=== PATIENT | female | born 1930 | race Caucasian/White ===

== ENCOUNTER 2016-11-07 17:22 | Inpatient (IN) | payer MEDICARE, OTHER ==
[2016-11-07 18:33] LABS: Basophils % (A) 0 %; CH 33.6; CHCM 35.2; Eosinophils # (A) 0.1 k/uL (0-0.7); Eosinophils % (A) 1 %; HCT 38.7 % (34.0-46.0); HDW 2.53; HGB 12.9 gm/dL (11.4-16.0); Luc % (Auto) 1; Lymphocytes # (A) 1.1 k/uL (1.0-4.8); Lymphocytes % (A) 14 %; MCH 31.9 pg (25.0-35.0); MCHC 33.3 g/dL (31.0-37.0); MCV 95.9 fL (80.0-100.0); Mean Platelet Volume 7.7; Monocytes # (A) 0.6 k/uL (0-1.0); Monocytes % (A) 7 %; Neutrophils % (A) 76 %; RBC 4.04 m/uL (3.80-5.40); RDW 13.8 % (11.5-15.5); WBC 7.9 k/uL (3.8-10.6); WBC (Perox) 7.97
[2016-11-07 18:43] LABS: Calcium 8.7 mg/dL (8.4-10.2); Potassium 5.6 mmol/L (3.5-5.1); Total Bilirubin 0.5 mg/dL (0.2-1.3)
[2016-11-07 19:05] LABS: Ammonia <9 umol/L (<30)
[2016-11-07 19:12] LABS: Appearance,Urine Cloudy (Clear); Bacteria,Urine Rare /hpf; Bilirubin,Urine Negative (Negative); Glucose,Urine (UA) Negative (Negative); Ketones,Urine Negative (Negative); Leukocyte Esterase,Urine Negative (Negative); Mucus,Urine Rare /hpf; Nitrite,Urine Negative (Negative); Particle Count 8558; Protein,Urine Trace (Negative); RBC,Urine 1 /hpf (0-5); Specific Gravity,Urine 1.013 (1.001-1.035); Squamous Epithelial Cell,Urine 5 /hpf (0-4); UA Billing (MACRO vs. MICRO) MICRO; Urobilinogen,Urine <2.0 mg/dL (<2.0); WBC,Urine 2 /hpf (0-5)
[2016-11-07] MEDS ORDERED: ENOXAPARIN 80 MG/0.8 ML SYRINGE SQ STA (20:20)
[2016-11-07] MEDS ORDERED: predniSONE 20 MG TAB PO STA (22:10)
--- NOTE | 2016-11-07 22:10 | ED ---
SOB HPI - General Chief Complaint: Shortness of Breath Stated Complaint: diarrhea, weakness, sob, confusion Time Seen by Provider: 11/07/16 17:46 Source: patient, RN notes reviewed Mode of arrival: ambulatory Limitations: altered mental status (Underlying dementia) - History of Present Illness Initial Comments: This patient is an 86-year-old woman with a history of underlying COPD, who presents to be evaluated for worsening shortness of breath. The patient's daughter is also providing history, as she states the patient has some underlying dementia. The patient has been becoming more short of breath with any exertion. She is also coughing. Patient denies fever or sputum production. She is not having any chest pain. MD Complaint: shortness of breath Onset/Timin -: days(s) Consistency: constant Improves With: nothing Worsens With: exertion Known History Of: COPD - Related Data Home Medications Medication Instructions Recorded Confirmed Vit A,C & E/Lutein/Minerals 1 tab PO DAILY 04/25/15 11/07/16 [Ocuvite with Lutein Tablet] Albuterol Inhaler [Ventolin Hfa 1 puff INHALATION RT-BID PRN 11/07/16 11/07/16 Inhaler] Aspirin EC [Ecotrin Low Dose] 81 mg PO DAILY 11/07/16 11/07/16 Cholecalciferol [Vitamin D3] 1,000 unit PO DAILY 11/07/16 11/07/16 Multivitamins, Thera [Multivitamin] 1 tab PO DAILY 11/07/16 11/07/16 [employer] Fatty Acids/Fish Oil [Fish 1 cap PO DAILY 11/07/16 11/07/16 Oil 1,000 mg Softgel] Allergies Allergy/AdvReac Type Severity Reaction Status Date / Time No Known Allergies Allergy Verified 11/07/16 18:28 Review of Systems ROS Statement: Those systems with pertinent positive or pertinent negative responses have been documented in the HPI. ROS Other: All systems not noted in ROS Statement are negative. Limitations: ROS unobtainable due to patients medical condition Constitutional: Reports: weakness. Denies: fever, chills Respiratory: Reports: cough, dyspnea Cardiovascular: Reports: dyspnea on exertion. Denies: chest pain, palpitations , edema Gastrointestinal: Reports: diarrhea. Denies: abdominal pain, vomiting, melena, hematochezia Genitourinary: Denies: dysuria Musculoskeletal: Denies: back pain Skin: Denies: rash Neurological: Denies: headache, weakness, numbness Past Medical History Past Medical History: Cancer Additional Past Medical History / Comment(s): breast cancer, peptic ulcer History of Any Multi-Drug Resistant Organisms: None Reported Past Surgical History: Orthopedic Surgery Additional Past Surgical History / Comment(s): left breast mastectomy, right knee surgery Past Psychological History: No Psychological Hx Reported Smoking Status: Current every day smoker Past Alcohol Use History: None Reported Past Drug Use History: None Reported General Exam Limitations: no limitations General appearance: alert, in distress Head exam: Present: atraumatic, normocephalic Eye exam: Present: normal appearance Neck exam: Present: normal inspection Respiratory exam: Present: wheezes, rales (Bilateral bases). Absent: rhonchi, stridor, accessory muscle use, decreased breath sounds, prolonged expiratory Cardiovascular Exam: Present: bradycardia, normal heart sounds. Absent: systolic murmur, diastolic murmur, rubs, gallop GI/Abdominal exam: Present: soft. Absent: distended, tenderness, guarding, rebound, mass Extremities exam: Present: normal inspection, normal capillary refill. Absent: pedal edema, calf tenderness Back exam: Present: normal inspection. Absent: CVA tenderness (R), CVA tenderness (L) Neurological exam: Present: alert Skin exam: Present: warm, dry, intact, normal color. Absent: rash Course Vital Signs 11/07/16 11/07/16 11/07/16 17:39 18:04 19:22 Temperature 98.2 F Pulse Rate 41 L 38 L Respiratory 18 18 18 Rate Blood Pressure 140/63 161/70 O2 Sat by Pulse 96 96 Oximetry 11/07/16 11/07/16 11/07/16 20:52 22:45 23:23 Temperature Pulse Rate 36 L 39 L 38 L Respiratory 14 18 18 Rate Blood Pressure 196/81 175/76 142/89 O2 Sat by Pulse 95 92 L Oximetry 11/07/16 23:44 Temperature Pulse Rate 46 L Respiratory 18 Rate Blood Pressure 171/70 O2 Sat by Pulse 95 Oximetry Medical Decision Making - Medical Decision Making Patient is an 86-year-old woman brought for dyspnea. She is found to have hyponatremia, there is some element of congestive heart failure, as well as some underlying COPD. In addition the patient is found to have what appears to be complete heart block with a junctional rhythm, the rate is in the upper 30s to 40. She is maintaining her blood pressure. External pacer pads applied, but the patient is not requiring pacing at the moment. Patient be admitted, case discussed with the hospitalist group, covering for her physician. In addition case was discussed with Dr. Layne who is covering cardiology tonight. He requests that dopamine be hung to maintain her blood pressure. Case also discussed with Dr. Samaniego who is the corporate strategist [facility]. - Lab Data Result diagrams: 11/07/16 18:10 11/07/16 18:10 Lab Results 11/07/16 11/07/16 11/07/16 Range/Units 18:10 18:10 18:10 WBC 7.9 (3.8-10.6) k/uL RBC 4.04 (3.80-5.40) m/uL Hgb 12.9 (11.4-16.0) gm/dL Hct 38.7 (34.0-46.0) % MCV 95.9 (80.0-100.0) fL MCH 31.9 (25.0-35.0) pg MCHC 33.3 (31.0-37.0) g/dL RDW 13.8 (11.5-15.5) % Plt Count 261 (150-450) k/uL Neutrophils % 76 % Lymphocytes % 14 % Monocytes % 7 % Eosinophils % 1 % Basophils % 0 % Neutrophils # 6.0 (1.3-7.7) k/uL Lymphocytes # 1.1 (1.0-4.8) k/uL Monocytes # 0.6 (0-1.0) k/uL Eosinophils # 0.1 (0-0.7) k/uL Basophils # 0.0 (0-0.2) k/uL D-Dimer (<0.60) mg/L FEU Sodium 122 L (137-145) mmol/L Potassium 5.6 H (3.5-5.1) mmol/L Chloride 93 L (98-107) mmol/L Carbon Dioxide 22 (22-30) mmol/L Anion Gap 7 mmol/L BUN 30 H (7-17) mg/dL Creatinine 1.27 H (0.52-1.04) mg/dL Est GFR (MDRD) Af Amer 48 (>60 ml/min/1.73 sqM) Est GFR (MDRD) Non-Af 40 (>60 ml/min/1.73 sqM) Glucose 113 H (74-99) mg/dL Plasma Lactic Acid Jung (0.7-2.0) mmol/L Calcium 8.7 (8.4-10.2) mg/dL Total Bilirubin 0.5 (0.2-1.3) mg/dL AST 21 (14-36) U/L ALT 34 (9-52) U/L Alkaline Phosphatase 70 (38-126) U/L Ammonia (<30) umol/L Troponin I 0.023 (0.000-0.034) ng/mL NT-Pro-B Natriuret Pep pg/mL Total Protein 6.0 L (6.3-8.2) g/dL Albumin 3.2 L (3.5-5.0) g/dL Urine Color Urine Appearance (Clear) Urine pH (5.0-8.0) Ur Specific [place] (1.001-1.035) Urine Protein (Negative) Urine Glucose (UA) (Negative) Urine Ketones (Negative) Urine Blood (Negative) Urine Nitrate (Negative) Urine Bilirubin (Negative) Urine Urobilinogen (<2.0) mg/dL Ur Leukocyte Esterase (Negative) Urine RBC (0-5) /hpf Urine WBC (0-5) /hpf Ur Squamous Epith Cells (0-4) /hpf Urine Bacteria (None) /hpf Hyaline Casts (0-2) /lpf Urine Mucus (None) /hpf 11/07/16 11/07/16 11/07/16 Range/Units 18:10 18:10 18:25 WBC (3.8-10.6) k/uL RBC (3.80-5.40) m/uL Hgb (11.4-16.0) gm/dL Hct (34.0-46.0) % MCV (80.0-100.0) fL MCH (25.0-35.0) pg MCHC (31.0-37.0) g/dL RDW (11.5-15.5) % Plt Count (150-450) k/uL Neutrophils % % Lymphocytes % % Monocytes % % Eosinophils % % Basophils % % Neutrophils # (1.3-7.7) k/uL Lymphocytes # (1.0-4.8) k/uL Monocytes # (0-1.0) k/uL Eosinophils # (0-0.7) k/uL Basophils # (0-0.2) k/uL D-Dimer 1.31 H (<0.60) mg/L FEU Sodium (137-145) mmol/L Potassium (3.5-5.1) mmol/L Chloride (98-107) mmol/L Carbon Dioxide (22-30) mmol/L Anion Gap mmol/L BUN (7-17) mg/dL Creatinine (0.52-1.04) mg/dL Est GFR (MDRD) Af Amer (>60 ml/min/1.73 sqM) Est GFR (MDRD) Non-Af (>60 ml/min/1.73 sqM) Glucose (74-99) mg/dL Plasma Lactic Acid Jung 1.3 (0.7-2.0) mmol/L Calcium (8.4-10.2) mg/dL Total Bilirubin (0.2-1.3) mg/dL AST (14-36) U/L ALT (9-52) U/L Alkaline Phosphatase (38-126) U/L Ammonia <9 (<30) umol/L Troponin I (0.000-0.034) ng/mL NT-Pro-B Natriuret Pep 59157 pg/mL Total Protein (6.3-8.2) g/dL Albumin (3.5-5.0) g/dL Urine Color Urine Appearance (Clear) Urine pH (5.0-8.0) Ur Specific [place] (1.001-1.035) Urine Protein (Negative) Urine Glucose (UA) (Negative) Urine Ketones (Negative) Urine Blood (Negative) Urine Nitrate (Negative) Urine Bilirubin (Negative) Urine Urobilinogen (<2.0) mg/dL Ur Leukocyte Esterase (Negative) Urine RBC (0-5) /hpf Urine WBC (0-5) /hpf Ur Squamous Epith Cells (0-4) /hpf Urine Bacteria (None) /hpf Hyaline Casts (0-2) /lpf Urine Mucus (None) /hpf 11/07/16 Range/Units 18:57 WBC (3.8-10.6) k/uL RBC (3.80-5.40) m/uL Hgb (11.4-16.0) gm/dL Hct (34.0-46.0) % MCV (80.0-100.0) fL MCH (25.0-35.0) pg MCHC (31.0-37.0) g/dL RDW (11.5-15.5) % Plt Count (150-450) k/uL Neutrophils % % Lymphocytes % % Monocytes % % Eosinophils % % Basophils % % Neutrophils # (1.3-7.7) k/uL Lymphocytes # (1.0-4.8) k/uL Monocytes # (0-1.0) k/uL Eosinophils # (0-0.7) k/uL Basophils # (0-0.2) k/uL D-Dimer (<0.60) mg/L FEU Sodium (137-145) mmol/L Potassium (3.5-5.1) mmol/L Chloride (98-107) mmol/L Carbon Dioxide (22-30) mmol/L Anion Gap mmol/L BUN (7-17) mg/dL Creatinine (0.52-1.04) mg/dL Est GFR (MDRD) Af Amer (>60 ml/min/1.73 sqM) Est GFR (MDRD) Non-Af (>60 ml/min/1.73 sqM) Glucose (74-99) mg/dL Plasma Lactic Acid Jung (0.7-2.0) mmol/L Calcium (8.4-10.2) mg/dL Total Bilirubin (0.2-1.3) mg/dL AST (14-36) U/L ALT (9-52) U/L Alkaline Phosphatase (38-126) U/L Ammonia (<30) umol/L Troponin I (0.000-0.034) ng/mL NT-Pro-B Natriuret Pep pg/mL Total Protein (6.3-8.2) g/dL Albumin (3.5-5.0) g/dL Urine Color Yellow Urine Appearance Cloudy H (Clear) Urine pH 5.0 (5.0-8.0) Ur Specific [place] 1.013 (1.001-1.035) Urine Protein Trace H (Negative) Urine Glucose (UA) Negative (Negative) Urine Ketones Negative (Negative) Urine Blood Trace H (Negative) Urine Nitrate Negative (Negative) Urine Bilirubin Negative (Negative) Urine Urobilinogen <2.0 (<2.0) mg/dL Ur Leukocyte Esterase Negative (Negative) Urine RBC 1 (0-5) /hpf Urine WBC 2 (0-5) /hpf Ur Squamous Epith Cells 5 H (0-4) /hpf Urine Bacteria Rare H (None) /hpf Hyaline Casts 11 H (0-2) /lpf Urine Mucus Rare H (None) /hpf - EKG Data -: EKG Interpreted by Me EKG shows normal: axis (Left axis deviation), intervals (Prolonged QT.), ST-T waves (Normal) Rate: bradycardia Interpretation: other (There appears to be a third-degree heart block, with a junctional rhythm rate approximately 40 bpm. Partial right bundle branch block. Prolonged QT syndrome.) Critical Care Time Critical Care Time: Yes (45 minutes) Disposition Clinical Impression: Congestive heart failure, Hyponatremia, Elevated d-dimer, Third degree heart block Disposition: ADMITTED IP TO THIS [facility] Condition: Poor
[2016-11-07] MEDS ORDERED: ALBUTEROL NEBULIZED 2.5 MG/3 ML INHALATION PRN (22:11)
--- NOTE | 2016-11-07 22:22 | XR ---
EXAMINATION TYPE: XR chest 1V portable DATE OF EXAM: 11/07/2016 6:33 PM COMPARISON: 09/19/2015 HISTORY: Altered mental status and difficulty breathing TECHNIQUE: Single frontal view of the chest is obtained. FINDINGS: There is no focal air space opacity, pleural effusion, or pneumothorax seen. There is pulm onary hyperinflation from chronic obstructive pulmonary disease. Additionally there is blunting of th e costophrenic angles relating copious overlying soft tissues as there is no evidence of pleural effu estiven on the lateral image. Mild pulmonary vascular congestion and minimal cardiac enlargement are see n with postoperative changes of the left axilla and chest wall. Glenohumeral arthropathy is noted. Th e cardiac silhouette size is within normal limits. The osseous structures are intact. IMPRESSION: 1. Mild pulmonary vascular congestion. 2. No focal consolidation, pleural effusion, or pneumothorax.
[2016-11-07] MEDS ORDERED: DOPamine DRIP 800 MG in DEXTROSE/WATER 1 500ML.BAG IV ONE (22:51)
[2016-11-07] MEDS: SODIUM CHLORIDE 0.9% 1,000 ML IV SCH (23:05)
[2016-11-08] MEDS ORDERED: FUROSEMIDE 10 MG/ML 4 ML VIAL IV STA (01:16)
[2016-11-08 01:45] LABS: Glucose,Whole Blood 112 mg/dL (75-99)
[2016-11-08] MEDS ORDERED: NALOXONE 0.4 MG/ML 1 ML VIAL IV PRN (02:59)
[2016-11-08] MEDS ORDERED: DOPamine DRIP 250 ML IV SCH (03:15)
[2016-11-08] MEDS ORDERED: amLODIPine 10 MG TAB PO STA (03:42)
[2016-11-08 04:49] LABS: Basophils % (A) 0 %; CH 32.9; CHCM 33.6; Eosinophils % (A) 0 %; HCT 40.8 % (34.0-46.0); HDW 2.49; HGB 13.2 gm/dL (11.4-16.0); Luc # (Auto) 0.04; Luc % (Auto) 1; Lymphocytes # (A) 0.4 k/uL (1.0-4.8); Lymphocytes % (A) 5 %; MCH 31.8 pg (25.0-35.0); MCHC 32.3 g/dL (31.0-37.0); MCV 98.3 fL (80.0-100.0); Mean Platelet Volume 6.8; Monocytes # (A) 0.2 k/uL (0-1.0); Monocytes % (A) 2 %; Neutrophils # (A) 8.1 k/uL (1.3-7.7); Neutrophils % (A) 92 %; RBC 4.15 m/uL (3.80-5.40); RDW 13.8 % (11.5-15.5); WBC 8.8 k/uL (3.8-10.6); WBC (Perox) 9.67
[2016-11-08 05:02] LABS: Calcium 8.6 mg/dL (8.4-10.2); Magnesium 2.3 mg/dL (1.6-2.3); Phosphorous 3.8 mg/dL (2.5-4.5)
[2016-11-08 05:03] LABS: Potassium 6.1 mmol/L (3.5-5.1)
[2016-11-08] MEDS ORDERED: DOPamine DRIP 800 MG in DEXTROSE/WATER 1 500ML.BAG IV ONE (05:15)
[2016-11-08] MEDS ORDERED: DEXTROSE 50%-WATER 50 ML SYRINGE IVP ONE (05:46)
[2016-11-08] MEDS ORDERED: CALCIUM GLUCONATE 1,000 MG in SODIUM CHLORIDE 0.9% 100 ML IVPB ONE (05:46)
[2016-11-08] MEDS ORDERED: INSULIN REGULAR 100 UNIT/ML VIAL IV ONE (05:46)
[2016-11-08] MEDS ORDERED: SODIUM POLYSTYRENE SULFONATE 15 GM/60 ML BOTTLE PO ONE (05:46)
[2016-11-08] MEDS ORDERED: ATROPINE SULFATE 0.1 MG/ML 10ML SYRINGE ONE (05:57)
[2016-11-08 06:23] LABS: Glucose,Whole Blood 150 mg/dL (75-99)
[2016-11-08 07:02] LABS: Glucose,Whole Blood 271 mg/dL (75-99)
[2016-11-08 07:17] LABS: Glucose,Whole Blood 200 mg/dL (75-99)
--- NOTE | 2016-11-08 07:35 | CONS ---
DATE OF CONSULTATION: CHIEF COMPLAINT: Exertional shortness of breath. Zoya is an 86-year-old lady with history of COPD who came to hospital complaining of exertional fatigue, this started last Monday when she became fatigued and tired as she walked from her home to her mailbox. This continued to get worse. She did not have any syncope. Did not have chest pain. Did not have focal neurological deficits. She came to the ER and was found to be in complete heart block with AV dissociation with junctional escape rhythm with narrow complexes. She had a fairly uneventful course through last night. Has somewhat of a labile blood pressure, but does not have any symptoms at rest. There is no syncope and does not have any pauses. We did not have to use any atropine and dopamine that was started at 2.5 had been stopped. She had hyperkalemia on admission with a potassium of 5.6 that increased to 6.1 this morning. The bradyarrhythmia is either due to an underlying problem with her conduction system or could be due to hyperkalemia that she has. I initiated treatment for hyperkalemia with the standard protocol including calcium gluconate, insulin, dextrose and Kayexalate. Heart rate has improved from high 30s to mid 40s at the moment, but still has AV dissociation. I talked to patient about her treatment options including a temporary transvenous pacemaker at the moment and permanent pacemaker. She wants to think over, talk it out with her family before she makes a decision. It is also possible that once the hyperkalemia is treatment, she resumes sinus rhythm and may not require any pacemaker. We prefer to avoid temporary pacemaker in this patient who is very stable, does not have any syncope, has a stable and narrow complex escape rhythm. Past medical history is significant for COPD. Medications at home include aspirin and Atrovent. ALLERGIES: There are no known drug allergies. Family history is negative for premature coronary artery disease. Social history is significant for 50 pack-year smoking. There is no history of EtOH abuse or drug abuse. REVIEW OF SYSTEMS: HEENT: Unremarkable. CARDIAC: As described above. RESPIRATORY: As described above. GI: Negative. GENITOURINARY: Negative. ALLERGY/IMMUNOLOGY: Negative. MUSCULOSKELETAL: Significant for arthritis. PSYCHOSOCIAL: Negative. ENDOCRINE: Negative. HEMATOLOGIC: Negative. DERM: Negative. CONSTITUTIONAL: Negative. ONCOLOGICAL: Negative. The rest of the system review is not relevant. On exam, heart rate is 45 beats per minute, blood pressure varied between 145/50 to 170/90. O2 sat is 95%. There is no jugular venous distention. Chest exam reveals occasional rhonchi bilaterally. Heart exam reveals first and second heart sounds. No gallop. Has a systolic murmur at the left lower sternal border. Abdomen is soft. Exam of the extremities did not reveal any edema. Peripheral pulses are felt. Chest x-ray shows hyperinflated lungs. ASSESSMENT AND PLAN: 1. Complete heart block. 2. Chronic obstructive pulmonary disease. 3. Hyperkalemia. 4. Uncontrolled hypertension. PLAN: Patient's complete heart block could be related to hyperkalemia. The exact etiology for her hyperkalemia is unclear. Will correct the hyperkalemia first and see how her rhythm evolves. At the moment, she is clinically stable. External pacer pads are at bedside. Her blood pressure is elevated. I am going to start her on Norvasc 10 mg daily. I will see what the patient decides about pacemaker. I will repeat electrolytes over the next few hours.
[2016-11-08] MEDS: IPRATROPIUM-ALBUTEROL 3 ML NEB INHALATION SCH ×4 (07:48→20:29)
--- NOTE | 2016-11-08 08:26 | XR ---
EXAMINATION TYPE: XR chest 1V DATE OF EXAM: 11/08/2016 6:21 AM COMPARISON: Prior chest x-ray October HISTORY: Shortness of breath TECHNIQUE: Single frontal view of the chest is obtained. FINDINGS: Patient is rotated. Postop changes are again noted. There are overlying cardiac leads. The heart is likely enlarged, interstitium is increased. No pneumothorax or sizable effusion. Basilar ai rspace disease suspected. IMPRESSION: Correlate for congestive heart failure.
[2016-11-08] MEDS ORDERED: ENOXAPARIN 60 MG/0.6 ML SYRINGE SQ SCH (09:00)
[2016-11-08] MEDS: CHOLECALCIFEROL 1,000 UNIT TAB PO SCH (09:20)
[2016-11-08] MEDS: PANTOPRAZOLE 40 MG/10 ML VIAL IV SCH (09:20)
[2016-11-08] MEDS: VIT A,C & E-LUTEIN-MINERALS 1 EACH TAB PO SCH (09:20)
[2016-11-08] MEDS: MULTIVITAMINS, THERA 1 EACH TAB PO SCH (09:20)
[2016-11-08] MEDS: ASPIRIN 81 MG CHEW PO SCH (09:20)
[2016-11-08 09:44] LABS: Calcium 8.9 mg/dL (8.4-10.2); Potassium 5.8 mmol/L (3.5-5.1)
[2016-11-08] MEDS ORDERED: hydrALAZINE HCL 20 MG/ML 1 ML VIAL IVP PRN (09:55)
--- NOTE | 2016-11-08 10:09 | ECHOF ---
Referral Reason:Heart Failure MEASUREMENTS -------- HEIGHT: 152.4 cm WEIGHT: 68.5 kg BP: RVIDd: 3.6 cm (< 3.3) IVSd: 1.1 cm (0.6 - 1.1) LVIDd: 4.2 cm (3.9 - 5.3) LVPWd: 1.0 cm (0.6 - 1.1) IVSs: 1.5 cm LVIDs: 3.5 cm LVPWs: 0.7 cm LA Diam: 3.6 cm (2.7 - 3.8) LAESV Index (A-L): 23.90 ml/m Ao Diam: 3.5 cm (2.0 - 3.7) AV Cusp: 1.7 cm (1.5 - 2.6) LA Diam: 4.1 cm (2.7 - 3.8) MV EXCURSION: 15.965 mm (> 18.000) MV EF SLOPE: 59 mm/s (70 - 150) EPSS: 0.3 cm RAP: 5.00 mmHg RVSP: 44.62 mmHg FINDINGS -------- Undetermined rhythm. This was a technically adequate study. There is borderline concentric left ventricular hypertrophy. Overall left ventricular systolic function is low-normal with, an EF between 50 - 55 %. The right ventricle is moderate to severely enlarged. The right atrial size is normal. There is mild aortic valve sclerosis. There is no evidence of aortic regurgitation. Mild mitral annular calcification present. Mild mitral regurgitation is present. Mild tricuspid regurgitation present. There is no evidence of pulmonary hypertension. The right ventricular systolic pressure, as measured by Doppler, is 44.62mmHg. Trace/mild (physiologic) pulmonic regurgitation. The aortic root size is normal. There is no pericardial effusion. CONCLUSIONS -------- 1. There is borderline concentric left ventricular hypertrophy. 2. Trace/mild (physiologic) pulmonic regurgitation. 3. Overall left ventricular systolic function is low-normal with, an EF between 50 - 55 %. 4. The right ventricle is moderate to severely enlarged. 5. There is mild aortic valve sclerosis. 6. Mild mitral annular calcification present. 7. Mild mitral regurgitation is present. 8. Mild tricuspid regurgitation present. 9. There is no evidence of pulmonary hypertension. 10. The right ventricular systolic pressure, as measured by Doppler, is 44.62mmHg. [employer]S COUNTER ASSISTANT: Michaelle Rivas RDCS
[2016-11-08] MEDS: methylPREDNISolone SOD SUCCI 125 MG/2 ML VIAL IV SCH ×2 (10:23→21:10)
[2016-11-08] MEDS: CHLORPHEN-HYDROcod 8-10mg/5ml 5 ML ORAL.SYRG PO SCH ×2 (10:30→21:11)
--- NOTE | 2016-11-08 10:45 | P.CNPUL ---
History of Present Illness Consult date: 11/08/16 Requesting physician: Carlos Davila Reason for consult: dyspnea, COPD, abnormal CXR/CT Chief complaint: Shortness of breath History of present illness: This is a very pleasant 86-year-old female patient who follows with Dr. Kent as her primary care physician. She has a history of chronic and ongoing nicotine addiction, chronic obstructive pulmonary disease only treated with Ventolin HFA as needed, breast cancer with previous left breast mastectomy, peptic ulcer disease, dementia. She presented here to the emergency room on with complaints of increasing shortness of breath, cough and congestion. She had been getting short of breath over the past several days. Once here she was noted to have complete heart block with intermittent junctional rhythms with a heart rate in the 30s and 40s. She had maintained normal blood pressures throughout. Somewhat hypertensive. She was seen and evaluated by the can striper who initiated a dopamine drip for the bradycardia without significant improvement. She is seen today in consultation on the intensive care unit. She is awake and alert in no acute distress. She has been having a loose nonproductive cough. She denies any chest pain, dizziness or lightheadedness. She has remained hemodynamically stable. Her chest x-ray does reveal some evidence of fluid volume overload with some congestive heart failure. An echocardiogram reveals preserved left ventricular systolic function with estimated ejection fraction 50-55%. She does have severe right ventricular enlargement. There is no significant pulmonary hypertension. She was found to be hyperkalemic with a potassium of 6.1, currently 5.8. Minor troponin leak. She has been treated with Kayexalate, calcium gluconate, D50 and IV Lasix all times one. She did receive 1 dose of Norvasc 10 mg by mouth this morning for her hypertension. Review of Systems 14 point review of system was conducted. All negative other than as mentioned in the HPI. Past Medical History Past Medical History: Cancer, COPD Additional Past Medical History / Comment(s): breast cancer, peptic ulcer, wears 2L at home History of Any Multi-Drug Resistant Organisms: None Reported Past Surgical History: Orthopedic Surgery Additional Past Surgical History / Comment(s): left breast mastectomy, right knee surgery Past Anesthesia/Blood Transfusion Reactions: No Reported Reaction Past Psychological History: No Psychological Hx Reported Smoking Status: Current every day smoker Past Alcohol Use History: None Reported Past Drug Use History: None Reported - Past Family History Father Family Medical History: Unable to Obtain Medications and Allergies Home Medications Medication Instructions Recorded Confirmed Type Vit A,C & E/Lutein/Minerals 1 tab PO DAILY 04/25/15 11/07/16 History [Ocuvite with Lutein Tablet] Albuterol Inhaler [Ventolin Hfa 1 puff INHALATION RT-BID PRN 11/07/16 11/07/16 History Inhaler] Aspirin EC [Ecotrin Low Dose] 81 mg PO DAILY 11/07/16 11/07/16 History Cholecalciferol [Vitamin D3] 1,000 unit PO DAILY 11/07/16 11/07/16 History Multivitamins, Thera [Multivitamin] 1 tab PO DAILY 11/07/16 11/07/16 History Obion-3 Fatty Acids/Fish Oil [Fish 1 cap PO DAILY 11/07/16 11/07/16 History Oil 1,000 mg Softgel] Allergies Allergy/AdvReac Type Severity Reaction Status Date / Time No Known Allergies Allergy Verified 11/07/16 18:28 Physical Exam Vitals: Vital Signs Temp Pulse Resp BP Pulse Ox 11/08/16 10:00 46 L 25 H 186/73 96 11/08/16 09:23 46 L 11/08/16 09:00 46 L 22 173/76 96 11/08/16 08:01 41 L 11/08/16 08:00 97.4 F L 40 L 22 140/56 96 11/08/16 07:51 41 L 11/08/16 07:00 44 L 19 194/71 95 11/08/16 06:30 45 L 25 H 145/50 95 11/08/16 06:00 38 L 25 H 153/53 95 11/08/16 05:30 38 L 23 148/58 94 L 11/08/16 05:00 39 L 21 145/53 93 L 11/08/16 04:30 40 L 21 137/75 94 L 11/08/16 04:00 98.1 F 38 L 18 132/55 94 L 11/08/16 03:30 39 L 24 176/53 96 11/08/16 03:00 39 L 20 167/58 93 L 11/08/16 02:30 40 L 19 156/48 91 L 11/08/16 02:00 40 L 22 93 L 11/07/16 23:44 46 L 18 171/70 95 11/07/16 23:23 38 L 18 142/89 92 L 11/07/16 22:45 39 L 18 175/76 95 Intake and Output 11/07/16 11/08/16 11/08/16 22:59 06:59 14:59 Intake Total 100 248.988 Output Total 250 Balance -150 248.988 Intake: IV 100 80 Sodium Chloride 0.9% 1, 100 80 000 ml @ 20 mls/hr IV . Q24H [facility] Rx#:[id number] Intake, IV Titration 108.988 Amount Calcium Gluconate 1,000 100 mg In Sodium Chloride 0.9 % 100 ml @ 400 mls/hr IVPB ONCE ONE Rx#: [id number] DOPamine DRIP 800 mg In 8.988 Dextrose/Water 1 500ml. bag @ 2.5 MCG/KG/MIN 6.42 mls/hr IV .Q24H ONE Rx#: [id number] Oral 60 Output: Urine 250 Other: Voiding Method Bedpan # Voids 1 Weight 70.9 kg GENERAL EXAM: Obese. Alert, comfortable in no apparent distress. HEAD: Normocephalic. EYES: Normal reaction of pupils, equal size. NOSE: Clear with pink turbinates. THROAT: There is some crowding of the posterior pharynx. Short. No erythema or exudates. NECK: No masses, no JVD. CHEST: No chest wall deformity. LUNGS: Equal air entry with bilateral end expiratory wheeze, crackles in the posterior bases. Diminished. CVS: S1 and S2 normal with no audible murmurs. ABDOMEN: Obese is interested in, normal bowel sounds, no guarding or rigidity. Extremities: There is trace peripheral edema. No clubbing, no cyanosis. Peripheral pulses are intact. Results - Laboratory Findings CBC and BMP: 11/08/16 04:33 11/08/16 09:15 PT/INR, D-dimer D-Dimer 1.31 mg/L FEU (<0.60) H 11/07/16 18:10 Abnormal lab findings: Abnormal Labs 11/08/16 11/08/16 11/08/16 01:43 04:33 04:33 Neutrophils # 8.1 H Lymphocytes # 0.4 L Sodium 123 L Potassium 6.1 H Chloride 96 L Carbon Dioxide 15 L BUN 31 H Creatinine 1.20 H Glucose 136 H POC Glucose (mg/dL) 112 H 11/08/16 11/08/16 11/08/16 06:03 06:43 07:15 Neutrophils # Lymphocytes # Sodium Potassium Chloride Carbon Dioxide BUN Creatinine Glucose POC Glucose (mg/dL) 150 H 271 H 200 H 11/08/16 09:15 Neutrophils # Lymphocytes # Sodium 125 L Potassium 5.8 H Chloride Carbon Dioxide 13 L BUN 29 H Creatinine 1.11 H Glucose 202 H POC Glucose (mg/dL) - Diagnostic Findings Chest x-ray: image reviewed Assessment and Plan Plan: Impression: #1 Dyspnea, multifactorial in a patient with suspected significant chronic obstructive pulmonary disease with ongoing chronic nicotine addiction, complete heart block with bradycardia. #2 Acute exacerbation of chronic obstructive pulmonary disease. #3 Complete heart block possibly secondary to hyperkalemia. #4 Severe right ventricular enlargement with some component of diastolic congestive heart failure. #5 Chronic and ongoing nicotine addiction. #6 Hypertension. #7 Obesity. #8 History of breast cancer status post left mastectomy. Plan: The patient was seen and evaluated by Dr. Samaniego. Her chest x-ray and labs were reviewed. We'll treat her cough with Tussionex 50 miles twice a day. 60 mg every 12 hours 2 doses. We'll continue with bronchodilators. We will also utilize hydralazine for her systolic blood pressure greater than 160. She is on Lovenox for DVT prophylaxis and Protonix for GI prophylaxis. Cardiology is on the case as well. The patient was offered a temporary pacemaker and possible permanent pacemaker however this point she has declined and will discuss it further with her daughter. In the interim they have her on dopamine infusion. We'll continue to monitor her here in the intensive care unit another 24 hours. We'll continue to follow make further recommendations based on her clinical status. Time with Patient: Greater than 30
[2016-11-08 11:51] LABS: Glucose,Whole Blood 215 mg/dL (75-99)
[2016-11-08] MEDS ORDERED: SODIUM POLYSTYRENE SULFONATE 15 GM/60 ML BOTTLE PO STA (12:55)
[2016-11-08] MEDS: INSULIN LISPRO (humaLOG) 300 UNIT/3 ML VIAL SQ SCH ×3 (13:25→21:09)
[2016-11-08 18:05] LABS: Glucose,Whole Blood 189 mg/dL (75-99)
[2016-11-08] MEDS: SODIUM CHLORIDE 0.9% 1,000 ML IV SCH (18:18)
[2016-11-08 19:49] LABS: Calcium 8.8 mg/dL (8.4-10.2); Potassium 5.5 mmol/L (3.5-5.1)
[2016-11-08 20:27] LABS: Hemoglobin A1C 5.6 % (4.2-6.1)
[2016-11-08 21:11] LABS: Glucose,Whole Blood 214 mg/dL (75-99)
[2016-11-08] MEDS: OSELTAMIVIR 75 MG CAP PO SCH (21:11)
[2016-11-09] MEDS: LEVOFLOXACIN 500MG-D5W PMX 500 MG in DEXTROSE/WATER 1 100ML.BAG IVPB SCH ×2 (00:19→22:25)
[2016-11-09 05:30] LABS: Basophils % (A) 0 %; CH 32.6; CHCM 32.7; Eosinophils % (A) 0 %; HCT 37.1 % (34.0-46.0); HDW 2.52; Luc # (Auto) 0.04; Luc % (Auto) 0; Lymphocytes # (A) 0.3 k/uL (1.0-4.8); Lymphocytes % (A) 3 %; MCH 32.5 pg (25.0-35.0); MCHC 32.4 g/dL (31.0-37.0); MCV 100.2 fL (80.0-100.0); Macrocytosis Slight; Monocytes # (A) 0.4 k/uL (0-1.0); Monocytes % (A) 4 %; Neutrophils # (A) 9.2 k/uL (1.3-7.7); Neutrophils % (A) 92 %; RDW 13.8 % (11.5-15.5)
[2016-11-09 05:38] LABS: Calcium 8.1 mg/dL (8.4-10.2); Magnesium 2.1 mg/dL (1.6-2.3); Phosphorous 5.4 mg/dL (2.5-4.5)
[2016-11-09 05:43] LABS: Potassium 5.8 mmol/L (3.5-5.1)
--- NOTE | 2016-11-09 05:55 | HP ---
DATE OF ADMISSION: DATE OF SERVICE: 11/08/2016 CHIEF COMPLAINT: Shortness of breath. HISTORY OF PRESENT ILLNESS: This 86-year-old woman with a past medical history of multiple medical problems include COPD, history of breast cancer, peptic ulcer disease, history of chronic hypoxic respiratory failure wearing 2 L home oxygen is complaining of increasing shortness of breath and cough for the paste several days. The patient also found to be more confused according to the family and the patient came to [facility] and admitted for further evaluation and treatment. The patient was evaluated in the ER which showed hyponatremia, hyperkalemia and as well as renal failure, complete heart block was also noted with third-degree AV block. Cardiology has seen the patient and thought possibly the third-degree AV block is secondary to hyperkalemia. Kayexalate has been given and the potassium is being continuously monitored. The patient was seen by Cardiology and Pulmonology also,. The 2-D echo with Doppler was also done, which showed ejection fraction 50% to 55% with preserved ejection fraction, mild abnormalities and no evidence of pulmonary hypertension also. The patient had incessant cough at this time. The patient's family also reports that multiple members of the family recently had flu epidemic. The patient continues to be confused and unable to history, most of the history is taken by my discussion with staff, review of the chart and discussion with family members at the bedside. The patient apparently smokes on a daily basis currently. The patient is followed by Dr. Kent in the outpatient setting. PAST MEDICAL HISTORY: History of COPD, history of breast cancer, history of peptic ulcer, history of chronic hypoxic respiratory failure, nicotine dependence. Current medications prior to admission include: 1. Vitamin A, C, lutein 1 tablet p.o. daily. 2. Felton-3 fatty acid 1 tablet daily. 3. Multivitamins 1 p.o. daily. 4. Vitamin D3, 1000 daily. 5. Ecotrin 81 mg daily. 6. Ventolin HFA 1 puff b.i.d. p.r.n. ALLERGIES: None. FAMILY HISTORY, SOCIAL HISTORY and REVIEW OF SYSTEMS: Could not be taken at length because of the patient's change in mental status. Smoking As mentioned earlier. PHYSICAL EXAMINATION: The patient is conscious, confused. Pulse is 42, blood pressure 103/47, respirations 23, temperature 97.3, pulse ox 97% on 4 L. HEENT: Conjunctivae normal. Oral mucosa moist. NECK: No jugular venous distention. No carotid bruit. No lymph node enlargement. CARDIOVASCULAR: S1 and S2 muffled. No S3, no S4. RESPIRATORY: Breath sounds diminished at the bases. Bilateral scattered rhonchi and crackles. Expiratory wheezing and crackles. ABDOMEN: Soft, nontender. No mass palpable. LEGS: No edema, no swelling. NERVOUS SYSTEM: Higher function as mentioned earlier. Moves all 4 limbs. No focal motor or sensory deficits. LYMPHATICS: No lymphadenopathy of neck, axillae or groin. SKIN: No ulcers, rashes or bleeding. LABS: CBC within normal limits. D-dimer is 1.31. Sodium is 122, potassium 5.6 and 5.5 subsequently. Repeat chest x-ray showed possible CHF. ASSESSMENT: 1. Chronic obstructive pulmonary disease acute exacerbation with acute purulent tracheobronchitis. 2. Possible acute influenza. 3. Rule out congestive heart failure acute exacerbation. 4. Change in mental status, metabolic encephalopathy, multifactorial. 5. Chronic hypoxic respiratory failure, on home oxygen. 6. Bradycardia with complete heart block possibly secondary to hyperkalemia. 7. Hyperkalemia secondary to renal failure. 8. Acute renal failure, possibly acute tubular necrosis, multifactorial. 9. Increased random blood sugar and diabetes mellitus type 2. 10. Hyponatremia. 11. Mild hypoalbuminemia with mild to moderate protein calorie malnutrition. 12. History of breast cancer. 13. History of peptic ulcer disease. 14. History of continued ongoing nicotine dependence. 15. FULL CODE. RECOMMENDATIONS AND DISCUSSION: This 86-year-old woman who presented with multiple complex medical issues, we will monitor the patient closely. Continue current medications, continue symptomatic treatment. Otherwise monitor the potassium closely. I would empirically initiate Tamiflu and continue the bronchodilators, empiric antibiotics and steroids. Closely follow with Dr. Samaniego, optimize bronchodilator treatment. Prognosis guarded because of multiple complex medical issues. Further recommendations to follow. Discussed with the family at length. The patient is currently FULL CODE and further recommendations to follow. See orders for further details. I would also recommend nephrology consultation regarding the renal failure and hyperkalemia as well. Once again, the prognosis is guarded. Monitor fluid electrolyte balance closely. Once dose of Lasix also given. Will repeat a chest x-ray tomorrow and continue to monitor. MTDD
[2016-11-09] MEDS ORDERED: SODIUM POLYSTYRENE SULFONATE 15 GM/60 ML BOTTLE PO STA (07:09)
[2016-11-09 07:53] LABS: Glucose,Whole Blood 148 mg/dL (75-99)
[2016-11-09] MEDS: ENOXAPARIN 80 MG/0.8 ML SYRINGE SQ SCH (08:23)
[2016-11-09] MEDS: ASPIRIN 81 MG CHEW PO SCH (08:23)
[2016-11-09] MEDS: CHOLECALCIFEROL 1,000 UNIT TAB PO SCH (08:24)
[2016-11-09] MEDS: VIT A,C & E-LUTEIN-MINERALS 1 EACH TAB PO SCH (08:24)
[2016-11-09] MEDS: PANTOPRAZOLE 40 MG/10 ML VIAL IV SCH (08:24)
[2016-11-09] MEDS: OSELTAMIVIR 75 MG CAP PO SCH ×2 (08:24→21:04)
[2016-11-09] MEDS: CHLORPHEN-HYDROcod 8-10mg/5ml 5 ML ORAL.SYRG PO SCH ×2 (08:28→21:04)
[2016-11-09] MEDS: INSULIN LISPRO (humaLOG) 300 UNIT/3 ML VIAL SQ SCH ×4 (08:30→20:57)
--- NOTE | 2016-11-09 09:38 | XR ---
EXAMINATION TYPE: XR chest 1V DATE OF EXAM: 11/09/2016 6:48 AM HISTORY: Shortness of breath. REFERENCE: Previous study dated 11/08/2016. FINDINGS: Lung volumes are prominent. There is vascular congestion and interstitial change. There is small, bilateral effusions. Note is made of a previous left axillary dissection and left-sided mastectomy. Note is made of degenerative change in the left shoulder. IMPRESSION: CONTINUING CHANGES OF CONGESTIVE HEART FAILURE AND INTERSTITIAL EDEMA.
[2016-11-09] MEDS ORDERED: ceFAZolin 2 GM in SODIUM CHLORIDE 0.9% 100 ML IVPB ONE ×2 (10:30→11:00)
[2016-11-09] MEDS ORDERED: ceFAZolin 1,000 MG in SODIUM CHLORIDE 0.9% IRRIGATIO 250 ML IRRIGATION ONE ×2 (10:30→11:00)
[2016-11-09] MEDS ORDERED: SODIUM CHLORIDE 0.9% 1,000 ML IV SCH ×2 (10:30→11:00)
--- NOTE | 2016-11-09 10:46 | P.PN ---
Subjective This is a very pleasant 86-year-old female patient who follows with Dr. Kent as her primary care physician. She has a history of chronic and ongoing nicotine addiction, chronic obstructive pulmonary disease only treated with Ventolin HFA as needed, breast cancer with previous left breast mastectomy, peptic ulcer disease, dementia. She presented here to the emergency room on with complaints of increasing shortness of breath, cough and congestion. She had been getting short of breath over the past several days. Once here she was noted to have complete heart block with intermittent junctional rhythms with a heart rate in the 30s and 40s. She had maintained normal blood pressures throughout. Somewhat hypertensive. She was seen and evaluated by the web weaver who initiated a dopamine drip for the bradycardia without significant improvement. She is seen today in consultation on the intensive care unit. She is awake and alert in no acute distress. She has been having a loose nonproductive cough. She denies any chest pain, dizziness or lightheadedness. She has remained hemodynamically stable. Her chest x-ray does reveal some evidence of fluid volume overload with some congestive heart failure. An echocardiogram reveals preserved left ventricular systolic function with estimated ejection fraction 50-55%. She does have severe right ventricular enlargement. There is no significant pulmonary hypertension. The patient is seen again today in follow-up 11/09/2016. She remains here in the intensive care unit. She remains in complete heart block and the plan is for permanent pacemaker implantation today. He remains hemodynamically stable. She is awake and alert in no acute distress. She denies any worsening shortness of breath, cough or congestion. She is maintaining good O2 saturations in the mid 90s on 3 L/m per nasal cannula. Her chest x-ray does reveal continued evidence of interstitial edema. She denies any chest pain, dizziness or lightheadedness. She remains hyponatremic with a sodium of 125. Still having issues with hyperkalemia and up current potassium 5.8. Creatinine remains elevated as well at 1.79. Objective - Vital Signs Vital signs: Vital Signs Temp 98.3 F 11/09/16 04:00 Pulse 38 L 11/09/16 07:00 Resp 16 11/09/16 07:00 BP 165/62 11/09/16 07:00 Pulse Ox 96 11/09/16 07:00 Intake & Output 11/08/16 11/09/16 11/09/16 18:59 06:59 18:59 Intake Total 507.829 700 50 Output Total 200 Balance 507.829 500 50 Weight 68.2 kg Intake: IV 300 600 50 Sodium Chloride 0.9% 1, 300 600 50 000 ml @ 50 mls/hr IV . Q20H [facility] Rx#:[id number] Intake, IV Titration 147.829 100 Amount Calcium Gluconate 1,000 100 mg In Sodium Chloride 0.9 % 100 ml @ 400 mls/hr IVPB ONCE ONE Rx#: [id number] DOPamine DRIP 800 mg In 47.829 Dextrose/Water 1 500ml. bag @ 2.5 MCG/KG/MIN 6.42 mls/hr IV .Q24H ONE Rx#: [id number] Levofloxacin 500Mg-D5w 100 Pmx 500 mg In Dextrose/ Water 1 100ml.bag @ 100 mls/hr IVPB Q24H [facility]CLUDES [facility] Rx#: [id number] Oral 60 Output: Urine 200 Other: Voiding Method Bedpan Bedpan Diaper # Voids 1 1 - Exam GENERAL EXAM: Alert, comfortable in no apparent distress. HEAD: Normocephalic. EYES: Normal reaction of pupils, equal size. NOSE: Clear with pink turbinates. THROAT: No erythema or exudates. NECK: No masses, no JVD. CHEST: No chest wall deformity. LUNGS: Equal air entry with few scattered rhonchi. Crackles in the posterior bases.. CVS: S1 and S2 normal with no audible murmurs, regular rhythm. Bradycardiac. ABDOMEN: No hepatosplenomegaly, normal bowel sounds, no guarding or rigidity. SPINE: No scoliosis or deformity SKIN: No rashes CENTRAL NERVOUS SYSTEM: No focal deficits, tone is normal in all 4 extremities. Extremities: There is no significant peripheral edema. No clubbing, no cyanosis. Peripheral pulses are intact. - Labs CBC & Chem 7: 11/09/16 04:40 11/09/16 04:40 Labs: Abnormal Lab Results - Last 24 Hours (Table) 11/08/16 11/08/16 11/08/16 Range/Units 11:32 18:03 19:20 RBC (3.80-5.40) m/uL MCV (80.0-100.0) fL Neutrophils # (1.3-7.7) k/uL Lymphocytes # (1.0-4.8) k/uL Sodium 126 L (137-145) mmol/L Potassium 5.5 H (3.5-5.1) mmol/L Chloride 96 L (98-107) mmol/L Carbon Dioxide 14 L (22-30) mmol/L BUN 35 H (7-17) mg/dL Creatinine 1.65 H (0.52-1.04) mg/dL Glucose 151 H (74-99) mg/dL POC Glucose (mg/dL) 215 H 189 H (75-99) mg/dL Calcium (8.4-10.2) mg/dL Phosphorus (2.5-4.5) mg/dL 11/08/16 11/09/16 11/09/16 Range/Units 21:09 04:40 04:40 RBC 3.70 L (3.80-5.40) m/uL MCV 100.2 H (80.0-100.0) fL Neutrophils # 9.2 H (1.3-7.7) k/uL Lymphocytes # 0.3 L (1.0-4.8) k/uL Sodium 125 L (137-145) mmol/L Potassium 5.8 H (3.5-5.1) mmol/L Chloride (98-107) mmol/L Carbon Dioxide 13 L (22-30) mmol/L BUN 42 H (7-17) mg/dL Creatinine 1.79 H (0.52-1.04) mg/dL Glucose 127 H (74-99) mg/dL POC Glucose (mg/dL) 214 H (75-99) mg/dL Calcium 8.1 L (8.4-10.2) mg/dL Phosphorus 5.4 H (2.5-4.5) mg/dL 11/09/16 Range/Units 07:52 RBC (3.80-5.40) m/uL MCV (80.0-100.0) fL Neutrophils # (1.3-7.7) k/uL Lymphocytes # (1.0-4.8) k/uL Sodium (137-145) mmol/L Potassium (3.5-5.1) mmol/L Chloride (98-107) mmol/L Carbon Dioxide (22-30) mmol/L BUN (7-17) mg/dL Creatinine (0.52-1.04) mg/dL Glucose (74-99) mg/dL POC Glucose (mg/dL) 148 H (75-99) mg/dL Calcium (8.4-10.2) mg/dL Phosphorus (2.5-4.5) mg/dL Assessment and Plan Plan: Impression: #1 Dyspnea, multifactorial in a patient with suspected significant chronic obstructive pulmonary disease with ongoing chronic nicotine addiction, complete heart block with bradycardia and some component of diastolic congestive heart failure with interstitial edema on chest x-ray. #2 Acute exacerbation of chronic obstructive pulmonary disease. #3 Complete heart block possibly secondary to hyperkalemia. Potassium remains high at 5.8. #4 Severe right ventricular enlargement with some component of diastolic congestive heart failure. #5 Chronic and ongoing nicotine addiction. #6 Hypertension. #7 Obesity. #8 History of breast cancer status post left mastectomy. #9 Acute renal failure current creatinine 1.79. #10 Hyponatremia current sodium 125. Plan: The patient was seen and evaluated by Dr. Samaniego. Her chest x-ray and labs were reviewed. The plan is for permanent pacemaker implantation today. Denies or current pulmonary medications including DuoNeb inhalations 4 times a day and when necessary along with Pulmicort and Perforomist inhalations twice a day. Her cough has improved on the Tussionex. We'll continue with IV Solu-Medrol. She remains on antibiotics in the form of cefazolin and Levaquin. He remained anticoagulated with Lovenox. He may benefit from some diuretics that can also help with her fluid volume overload and hyperkalemia. We'll adjust her IVs regarding the hyponatremia. We will continue to follow make further recommendations based on her clinical status.
[2016-11-09] MEDS: FORMOTEROL FUMARATE 20 MCG/2 ML NEBU INHALATION SCH ×2 (11:39→21:18)
[2016-11-09] MEDS: IPRATROPIUM-ALBUTEROL 3 ML NEB INHALATION SCH ×4 (11:39→21:18)
[2016-11-09] MEDS: BUDESONIDE 1 MG/2 ML NEBU INHALATION SCH ×2 (11:39→21:18)
[2016-11-09] MEDS ORDERED: SODIUM CHLORIDE 0.9% 250 ML IV ONE (11:50)
[2016-11-09] MEDS ORDERED: ceFAZolin 1,000 MG in DEXTROSE/WATER 1 50ML.BAG IVPB STA (12:01)
[2016-11-09 12:13] VITALS: BMI 29.3
[2016-11-09] MEDS ORDERED: fentaNYL (PF) 50 MCG/ML 2 ML AMP IV ONE (12:14)
[2016-11-09] MEDS ORDERED: fentaNYL (PF) 50 MCG/ML 2 ML AMP ONE (12:14)
[2016-11-09] MEDS ORDERED: LIDOCAINE 2% INJ 20 MG/ML SQ ONE (12:16)
[2016-11-09] MEDS ORDERED: IODIXANOL 320 MG/ML 100 ML IV ONE (12:32)
--- NOTE | 2016-11-09 12:39 | P.PCN ---
Preoperative Diagnosis: Transvenous temporary pacing procedure Indication for the procedure: Severe underlying bradycardia secondary to complete heart block Patient was brought to the EP lab in a fasting state. Written informed consent was obtained prior to the procedure. The right groin was prepped and draped as a protocol. A 6-Bolivian sheath was placed in the right femoral vein. Via this, a temporary pacing catheter was placed in the right ventricle. Thresholds were interrogated. Temporary pacing was performed through the rest of the procedure. At the end of the entire procedure, the TVP was removed. The sheath was removed and hemostasis was assured. Patient tolerated the procedure well without any acute complications. Procedure performed Transvenous temporary pacing Please note that this was a procedure performed separately.
[2016-11-09] MEDS ORDERED: MIDAZOLAM 2 MG/2 ML VIAL ONE (12:48)
[2016-11-09] MEDS ORDERED: LIDOCAINE 1% INJ 10MG/ML (20 ML MDV) SQ ONE (12:50)
[2016-11-09] MEDS ORDERED: MIDAZOLAM 2 MG/2 ML VIAL IVP ONE (12:51)
[2016-11-09] MEDS ORDERED: HYDROcodone/APAP 5-325MG 1 EACH TAB PO PRN (13:27)
[2016-11-09] MEDS ORDERED: ACETAMINOPHEN TAB 325 MG TAB PO PRN (13:27)
--- NOTE | 2016-11-09 14:14 | PCN ---
DATE OF PROCEDURE: An 86-year-old female who presented with a third degree heart block and underwent transvenous temporary pacing. Following that, single-chamber pacemaker was implanted. The left pectoral area was prepped and draped as per protocol. A separate setup was used compared to the temporary pacemaker setup. IV antibiotics were administered and incision was made prior to the deltopectoral groove about 1.5 cm medial to it. The incision was carried down to the level of pectoralis muscle. A subfascial pocket was made. Hemostasis was assured. The left axillary vein was accessed and ( ) appropriate-sized introducer sheaths, a tined lead was positioned on the right ventricle. A tined lead was implanted in the RV apex which is a [employer], model #1948, 14 cm in length, and serial #[id number]. The pacing threshold was less than 0.6 volts at 0.5 ms, pacing impedance was within normal limits. The lead was secured to the underlying pectoralis fascia using 2 nonabsorbable sutures. Pocket was irrigated with antibiotic solution. The lead was connected to the generator ([employer] [id number], serial #[id number]). The lead and the generator were placed in the subfascial pocket. The wound was closed in 3 layers and dressed per protocol. RESULT: Successful single-chamber pacemaker implantation. Pacemaker was programmed to VVI at 50 to 120 bpm. Pacing threshold 0.6 volts at 0.5 ms, pacing impedance 751 ohms.
[2016-11-09 14:15] LABS: Glucose,Whole Blood 138 mg/dL (75-99)
[2016-11-09] MEDS: MULTIVITAMINS, THERA 1 EACH TAB PO SCH (14:23)
[2016-11-09] MEDS: SODIUM CHLORIDE 0.9% 1,000 ML IV SCH (14:24)
[2016-11-09 17:30] LABS: Glucose,Whole Blood 124 mg/dL (75-99)
[2016-11-09] MEDS: ceFAZolin 2 GM in SODIUM CHLORIDE 0.9% 100 ML IVPB SCH (18:12)
[2016-11-09] MEDS: methylPREDNISolone SOD SUCCI 40 MG/ML 1 ML VIAL IV SCH (18:12)
[2016-11-09 20:22] LABS: Glucose,Whole Blood 118 mg/dL (75-99)
--- NOTE | 2016-11-09 21:01 | PN ---
DATE OF SERVICE: 11/09/2016 This 86-year-old woman who was admitted with shortness of breath had COPD, acute exacerbation. The patient also was found to have complete heart block. The patient underwent pacemaker implantation. The shortness of breath is thought to be multifactorial at this time. Diastolic CHF is also suspected. Dr. Samaniego is following the patient closely. Past medical history reviewed. REVIEW OF SYSTEMS: CARDIOVASCULAR SYSTEM: As mentioned earlier. RESPIRATORY SYSTEM: Still shortness of breath and cough. GI: As mentioned earlier. : No dysuria. NERVOUS SYSTEM: No numbness or weakness. Current medications are reviewed and include: 1. Tylenol 650 q.6 p.r.n. 2. [place] 5 mg q.4. 3. Ventolin b.i.d. 4. DuoNeb q.i.d. and p.r.n. 5. Aspirin 81 mg. 6. Pulmicort 1 mg b.i.d. 7. Cefazolin 2 grams q.6. 8. Tussionex 5 mL b.i.d. 9. Vitamin D3 1000 daily. 10. Lovenox 70 mg q.24 hours. 11. Perforomist b.i.d. 12. Apresoline. 13. Levaquin. 14. Solu-Medrol 40 IV q.8. 15. Multivitamins. 16. Narcan. 17. Tamiflu. 18. Protonix. PHYSICAL EXAMINATION: Patient is alert and oriented x3. Pulse is 54, blood pressure 126/51, respiration 15, temperature normal, pulse ox 94% on 2 L. HEENT: Conjunctivae normal. NECK: No jugular venous distention. CARDIOVASCULAR SYSTEM: S1, S2 muffled. RESPIRATORY SYSTEM: Breath sounds diminished at the bases. Bilateral scattered rhonchi and crackles. Breathing efforts are increased. ABDOMEN: Soft, non-tender. No mass palpable. LEGS: No edema. No swelling. NERVOUS SYSTEM: Higher functions as mentioned earlier. Moves all 4 limbs. No focal motor or sensory deficit. LYMPHATICS: No lymph node palpable in neck, axillae or groin. SKIN: No ulcer, rash, bleeding. LABS: WBC is 10. Hemoglobin 12. Sodium 125, potassium 5.8. Creatinine is 1.79. ASSESSMENT: 1. Shortness of breath, possibly multifactorial, with chronic obstructive pulmonary disease, acute exacerbation, with acute purulent tracheobronchitis as well as congestive heart failure, acute exacerbation, with acute on chronic diastolic dysfunction. 2. Complete heart block, status post pacemaker implantation. 3. Rule out acute influenza. 4. Change in mental status, metabolic encephalopathy, multifactorial. 5. Chronic hypoxic respiratory failure, on home oxygen. 6. Bradycardia with complete heart block, possibly secondary to hyperkalemia as well. 7. Hyperkalemia secondary to acute on chronic renal failure. 8. Acute renal failure, possibly acute tubular necrosis, multifactorial. 9. Increased random blood sugar; possibly diabetes mellitus, type 2. 10. Hyponatremia. 11. Mild hypoalbuminemia with mild to moderate protein-calorie malnutrition. 12. History of breast cancer. 13. History of peptic ulcer disease. 14. Continued ongoing nicotine dependence. 15. FULL CODE. RECOMMENDATIONS AND DISCUSSION: In this 86-year-old woman who presented with multiple complex medical issues, we will monitor the patient closely, continue the current medication, continue with symptomatic treatment. Closely follow with Cardiology. Otherwise, monitor. Kayexalate has been given. Monitor potassium closely. Repeat labs. I would also recommend nephrology evaluation with Dr. Morgan. Prognosis guarded because of multiple complex medical issues. Further recommendations to follow. PT, OT evaluation. Possible ECF rehab.
[2016-11-10] MEDS: methylPREDNISolone SOD SUCCI 40 MG/ML 1 ML VIAL IV SCH ×4 (00:10→22:37)
[2016-11-10] MEDS: ceFAZolin 2 GM in SODIUM CHLORIDE 0.9% 100 ML IVPB SCH ×3 (00:11→13:04)
[2016-11-10 01:57] LABS: Glucose,Whole Blood 118 mg/dL (75-99)
[2016-11-10 05:57] LABS: Glucose,Whole Blood 119 mg/dL (75-99)
[2016-11-10] MEDS: INSULIN LISPRO (humaLOG) 300 UNIT/3 ML VIAL SQ SCH ×4 (06:03→20:47)
[2016-11-10 07:11] LABS: Basophils % (A) 0 %; CH 32.8; CHCM 33.9; Eosinophils % (A) 0 %; HCT 34.2 % (34.0-46.0); HDW 2.69; HGB 11.2 gm/dL (11.4-16.0); Luc # (Auto) 0.03; Luc % (Auto) 0; Lymphocytes # (A) 0.2 k/uL (1.0-4.8); Lymphocytes % (A) 2 %; MCH 31.9 pg (25.0-35.0); MCHC 32.7 g/dL (31.0-37.0); MCV 97.3 fL (80.0-100.0); Mean Platelet Volume 7.5; Monocytes # (A) 0.5 k/uL (0-1.0); Monocytes % (A) 4 %; Neutrophils % (A) 95 %; RBC 3.52 m/uL (3.80-5.40); RDW 14.2 % (11.5-15.5); WBC 13.8 k/uL (3.8-10.6); WBC (Perox) 14.07
[2016-11-10 08:04] LABS: Calcium 7.9 mg/dL (8.4-10.2); Magnesium 2.2 mg/dL (1.6-2.3); Phosphorous 5.4 mg/dL (2.5-4.5); Potassium 4.1 mmol/L (3.5-5.1)
[2016-11-10] MEDS: IPRATROPIUM-ALBUTEROL 3 ML NEB INHALATION SCH ×4 (08:04→20:17)
[2016-11-10] MEDS: BUDESONIDE 1 MG/2 ML NEBU INHALATION SCH ×2 (08:04→20:16)
[2016-11-10] MEDS: FORMOTEROL FUMARATE 20 MCG/2 ML NEBU INHALATION SCH ×2 (08:04→20:16)
--- NOTE | 2016-11-10 08:47 | XR ---
EXAMINATION TYPE: XR chest 2V DATE OF EXAM: 11/10/2016 6:38 AM COMPARISON: 11/09/2016 HISTORY: Pacemaker insertion FINDINGS: Single lead pacemaker seen with the lead overlying the right ventricle. Diffuse interstitial pattern seen. Postoperative clips noted. No pneumothorax. Basilar atelectasis and tiny effusion suspected. Arthropathy of the shoulders particularly on the left. IMPRESSION: 1. Pacemaker appears in good position with no sizable pneumothorax. 2. Correlate for mild CHF
[2016-11-10] MEDS: ASPIRIN 81 MG CHEW PO SCH (10:00)
[2016-11-10] MEDS: VIT A,C & E-LUTEIN-MINERALS 1 EACH TAB PO SCH (10:01)
[2016-11-10] MEDS: MULTIVITAMINS, THERA 1 EACH TAB PO SCH (10:01)
[2016-11-10] MEDS: PANTOPRAZOLE 40 MG/10 ML VIAL IV SCH (10:01)
[2016-11-10] MEDS: CHOLECALCIFEROL 1,000 UNIT TAB PO SCH (10:01)
[2016-11-10] MEDS: OSELTAMIVIR 75 MG CAP PO SCH (10:01)
[2016-11-10] MEDS: CHLORPHEN-HYDROcod 8-10mg/5ml 5 ML ORAL.SYRG PO SCH ×2 (10:11→20:20)
[2016-11-10] MEDS: ENOXAPARIN 80 MG/0.8 ML SYRINGE SQ SCH (10:16)
[2016-11-10 12:05] LABS: Glucose,Whole Blood 141 mg/dL (75-99)
[2016-11-10] MEDS: SODIUM CHLORIDE 0.9% 1,000 ML IV SCH (13:05)
[2016-11-10] MEDS ORDERED: IV FLUID CONTINUATION 1,000 ML IV ONE (13:28)
[2016-11-10] MEDS ORDERED: LIDOCAINE 1% INJ 10MG/ML (20 ML MDV) SQ ONE (13:47)
--- NOTE | 2016-11-10 14:22 | P.PN ---
Subjective This is a very pleasant 86-year-old female patient who follows with Dr. Kent as her primary care physician. She has a history of chronic and ongoing nicotine addiction, chronic obstructive pulmonary disease only treated with Ventolin HFA as needed, breast cancer with previous left breast mastectomy, peptic ulcer disease, dementia. She presented here to the emergency room on with complaints of increasing shortness of breath, cough and congestion. She had been getting short of breath over the past several days. Once here she was noted to have complete heart block with intermittent junctional rhythms with a heart rate in the 30s and 40s. She had maintained normal blood pressures throughout. Somewhat hypertensive. She was seen and evaluated by the inspector rag sorting who initiated a dopamine drip for the bradycardia without significant improvement. She is seen today in consultation on the intensive care unit. She is awake and alert in no acute distress. She has been having a loose nonproductive cough. She denies any chest pain, dizziness or lightheadedness. She has remained hemodynamically stable. Her chest x-ray does reveal some evidence of fluid volume overload with some congestive heart failure. An echocardiogram reveals preserved left ventricular systolic function with estimated ejection fraction 50-55%. She does have severe right ventricular enlargement. There is no significant pulmonary hypertension. The patient is seen again today in follow-up 11/09/2016. She remains here in the intensive care unit. She remains in complete heart block and the plan is for permanent pacemaker implantation today. He remains hemodynamically stable. She is awake and alert in no acute distress. She denies any worsening shortness of breath, cough or congestion. She is maintaining good O2 saturations in the mid 90s on 3 L/m per nasal cannula. Her chest x-ray does reveal continued evidence of interstitial edema. She denies any chest pain, dizziness or lightheadedness. She remains hyponatremic with a sodium of 125. Still having issues with hyperkalemia and up current potassium 5.8. Creatinine remains elevated as well at 1.79. On 11/10/2016 the patient is being seen in follow-up in the patient got transferred out of the intensive care unit. Mother the patient underwent a pacemaker insertion and the procedure was successful without any complications. The chest x-ray following the procedure showed adequate expansion of both lungs and there is no evidence of pneumothorax. The patient is doing well. The potassium level has dropped to normal range. The patient has no significant electrolyte abnormalities in the sodium level is up to 131. No significant respiratory distress. No cough or sputum production. No chest that is no wheezing. No other complaints otherwise for now. Objective - Vital Signs Vital signs: Vital Signs Temp 97.0 F L 11/10/16 07:50 Pulse 56 L 11/10/16 12:03 Resp 18 11/10/16 07:50 BP 162/68 11/10/16 07:50 Pulse Ox 97 11/10/16 07:50 Intake & Output 11/09/16 11/10/16 11/10/16 18:59 06:59 18:59 Intake Total 528.651 9211 Output Total 300 Balance 144.448 0220 Weight 68.2 kg 68 kg Intake: IV 630 600 Sodium Chloride 0.9% 1, 350 600 000 ml @ 50 mls/hr IV . Q20H [facility] Rx#:[id number] Intake, IV Titration 245.282 100 Amount DOPamine DRIP 800 mg In 245.282 Dextrose/Water 1 500ml. bag @ 2.5 MCG/KG/MIN 6.42 mls/hr IV .Q24H [facility] Rx#: [id number] ceFAZolin 2 gm In Sodium 100 Chloride 0.9% 100 ml @ 100 mls/hr IVPB Q6H [facility] Rx#:[id number] Oral 450 Output: Urine 300 Other: Voiding Method Bedpan Bedpan Diaper Diaper # Voids 2 # Bowel Movements 1 1 - Exam Head exam was generally normal. There was no scleral icterus or corneal arcus. Mucous membranes were moist.Neck was supple and without jugular venous distension, thyromegaly, or carotid bruits. Carotids were easily palpable bilaterally. There was no adenopathy. Lung sounds are diminished lung with some few scattered expiratory wheeze. Cardiac exam revealed the PMI to be normally situated and sized. The rhythm was regular and no extrasystoles were noted during several minutes of auscultation. The first and second heart sounds were normal and physiologic splitting of the second heart sound was noted. There were no murmurs, rubs, clicks, or gallops. The pacemaker site over the left anterior chest wall is dry clean and intact.Examination of the extremities revealed easily palpable radial, femoral and pedal pulses. There was no cyanosis , clubbing or edema. - Labs CBC & Chem 7: 11/10/16 06:18 11/10/16 06:18 Labs: Abnormal Lab Results - Last 24 Hours (Table) 11/09/16 11/09/16 11/10/16 Range/Units 17:29 20:21 01:56 WBC (3.8-10.6) k/uL RBC (3.80-5.40) m/uL Hgb (11.4-16.0) gm/dL Neutrophils # (1.3-7.7) k/uL Lymphocytes # (1.0-4.8) k/uL Sodium (137-145) mmol/L Carbon Dioxide (22-30) mmol/L BUN (7-17) mg/dL Creatinine (0.52-1.04) mg/dL Glucose (74-99) mg/dL POC Glucose (mg/dL) 124 H 118 H 118 H (75-99) mg/dL Calcium (8.4-10.2) mg/dL Phosphorus (2.5-4.5) mg/dL 11/10/16 11/10/16 11/10/16 Range/Units 05:55 06:18 06:18 WBC 13.8 H (3.8-10.6) k/uL RBC 3.52 L (3.80-5.40) m/uL Hgb 11.2 L (11.4-16.0) gm/dL Neutrophils # 13.0 H (1.3-7.7) k/uL Lymphocytes # 0.2 L (1.0-4.8) k/uL Sodium 131 L (137-145) mmol/L Carbon Dioxide 18 L (22-30) mmol/L BUN 46 H (7-17) mg/dL Creatinine 1.62 H (0.52-1.04) mg/dL Glucose 106 H (74-99) mg/dL POC Glucose (mg/dL) 119 H (75-99) mg/dL Calcium 7.9 L (8.4-10.2) mg/dL Phosphorus 5.4 H (2.5-4.5) mg/dL 11/10/16 Range/Units 12:01 WBC (3.8-10.6) k/uL RBC (3.80-5.40) m/uL Hgb (11.4-16.0) gm/dL Neutrophils # (1.3-7.7) k/uL Lymphocytes # (1.0-4.8) k/uL Sodium (137-145) mmol/L Carbon Dioxide (22-30) mmol/L BUN (7-17) mg/dL Creatinine (0.52-1.04) mg/dL Glucose (74-99) mg/dL POC Glucose (mg/dL) 141 H (75-99) mg/dL Calcium (8.4-10.2) mg/dL Phosphorus (2.5-4.5) mg/dL Microbiology - Last 24 Hours (Table) 11/08/16 22:30 Blood Culture - Preliminary Blood No Growth after 24 hours Assessment and Plan Plan: Impression 1 shortness of breath secondary to COPD and diastolic heart failure, further decompensated by an underlying third-degree AV block, improved 2 COPD exacerbation improving 3 third-degree AV block status post pacemaker insertion 4 hyperkalemia, recovered and the potassium level has normalized 5 chronic renal failure with possibly an underlying acute component, stable, improving 6 severe right-sided enlargement with pulmonary hypertension probably due to his underlying COPD and diastolic heart failure 7 nicotine addiction/smoking 8 hypertension 9 breast cancer with a previous left mastectomy 10 hyponatremia, recovered Plan Patient is doing well. No major respiratory difficulties for now. She is recovering from acute COPD exacerbation and she is on IV Solu-Medrol. We'll continue IV Solu Medrol for another 24 hours and then taper this patient to a prednisone burst taper. Continue Pulmicort Respules. Continue Perforomist nebs twice a day. Continue DuoNeb the blood sugars 4 times a day. Tussionex for cough. Monitor the renal function. Monitor the potassium level. We'll continue to follow.
--- NOTE | 2016-11-10 14:24 | CONS ---
DATE OF CONSULTATION: 11/10/2016 HISTORY OF PRESENT ILLNESS: Patient is an 86-year-old female who was admitted to the hospital on 11/07/2016 with complaints of shortness of breath. She has an underlying history of COPD. Patient's serum creatinine on admission was at 1.27 mg/dL, it is now at 1.62, it was at 1.79 yesterday. Heart rate has been at about 56. Patient was bradycardic and is status post pacemaker placement. Blood pressure had been low with systolic 84 and 98 mmHg on 11/08. Currently, patient is not on any nephrotoxic medications and she has not received any IV contrast. She has been voiding in a diaper. Urine output is not accurately charted. PAST MEDICAL HISTORY: Significant for breast cancer, peptic ulcer disease, COPD, osteoarthritis. PAST SURGICAL HISTORY: Mastectomy, right knee surgery. SOCIAL HISTORY: Positive for smoking, no history of drug abuse or alcohol abuse. REVIEW OF SYSTEMS: As per HPI. No active bleeding noted. The patient is not short of breath. She is currently comfortable. Medications at home included Albuterol, fish oil, vitamin D. ALLERGIES: None. On examination, patient is comfortable, awake, patient is not in any acute distress. Blood pressure is 164/68, heart rate 52. On examination, afebrile. Examination of the heart S1 and S2. Examination of the lungs, bilateral breath sounds are heard. Abdomen is soft, nontender. Examination of the lower extremities shows no evidence of edema. [employer]ET[employer] EX[employer] exam is grossly intact. Patient is moving all 4 extremities. Labs show sodium 131, potassium 4.1, BUN 46, serum creatinine 1.67. Hemoglobin 11.2 g/dL. ASSESSMENT: 1. Acute kidney injury secondary to hypotension and hypoperfusion, currently improved. Patient has been voiding although we have not measured her urine output accurately. As long as renal function continues to improve, this should be okay; however, we will do one bladder scan to rule out underlying urine retention. 2. Bradycardia and complete heart block, status post pacemaker placement. 3. Hyperkalemia, initially on admission with a potassium which peaked at 6.1 now at 4.1 mEq/L. This is mainly associated with some degree of acute kidney injury. Patient was not on any NAYANA inhibitors prior to admission. I will get a bladder scan to rule out underlying urine retention, which can be associated with hyperkalemia, too. 4. Rule out chronic kidney disease. PLAN: Check bladder scan, rule out urine retention. Continue with IV fluids at 50 mL an hour. Repeat labs in a.m. and avoid any nephrotoxic agents. Thank you for this consultation. Will continue to follow the patient with you during her hospitalization.
--- NOTE | 2016-11-10 14:57 | PN ---
Zoya Kerr is an 86 -year-old female who underwent permanent pacemaker implantation yesterday. Last night she was moving her shoulders and may have been confused and had bleeding and soakage of the dressing. I brought her to the lab to remove the dressing to see if there was any wound dehiscence. Under full sterile precautions the dressing was removed. The wound area was cleaned. There was no dehiscence, however, despite that, I did put local anesthesia and applied matteo for additional protection and then dressed the wound and applied pressure dressing. She is on IV antibiotics and is on aspirin which will continue.
[2016-11-10 17:55] LABS: Glucose,Whole Blood 184 mg/dL (75-99)
--- NOTE | 2016-11-10 18:58 | PN ---
DATE OF SERVICE: 11/10/2016 This 86-year-old woman was admitted with shortness of breath which is multifactorial, COPD, CHF; also had complete heart block. Patient had hyperkalemia patient is being closely monitored. No chest pain, no palpitation. Patient would like to return home with her daughter at this time. On exam, alert and oriented x3. Pulse 56, blood pressure 162/68, respiration 18, temperature 97 degrees, pulse ox 97% on room air. HEENT: Conjunctivae normal. NECK: No jugular venous distention. CARDIOVASCULAR SYSTEM: S1, S2 muffled. RESPIRATORY SYSTEM: Breath sounds diminished at the bases. A few scattered rhonchi and crackles. ABDOMEN: Soft, nontender. LEGS: No edema. No swelling. NERVOUS SYSTEM: No focal deficit. LABS: WBC 13.8, hemoglobin 11.2. Sodium 131. Creatinine is 1.62. ASSESSMENT: 1. Shortness of breath, possibly multifactorial, with chronic obstructive pulmonary disease, acute exacerbation, with acute purulent tracheobronchitis as well as congestive heart failure, acute exacerbation, with acute on chronic diastolic dysfunction. 2. Complete heart block, status post pacemaker implantation. 3. Rule out acute influenza. 4. Change in mental status, acute metabolic encephalopathy, multifactorial. 5. Chronic hypoxic respiratory failure, on home oxygen. 6. History of bradycardia with complete heart block, possibly secondary to hyperkalemia as well. 7. Hyperkalemia secondary to acute on chronic renal failure. 8. Acute renal failure, possibly acute tubular necrosis, multifactorial. 9. Increased random blood sugar; possibly impaired fasting glucose. 10. Hyponatremia. 11. Mild hypoalbuminemia with mild to moderate protein-calorie malnutrition. 12. History of breast cancer. 13. History of peptic ulcer disease. 14. Continued ongoing nicotine dependence. 15. FULL CODE. RECOMMENDATIONS AND DISCUSSION: I recommend to continue current medications, continue with monitoring, symptomatic treatment. Otherwise, hemoglobin A1c is only 5.6. Will continue to monitor. Otherwise, closely follow with Cardiology and Pulmonology. Guarded prognosis because of multiple complex medical issues. Further recommendations to follow. MTDD
[2016-11-10 20:08] VITALS: RESP 18
[2016-11-10 21:00] LABS: Glucose,Whole Blood 156 mg/dL (75-99)
[2016-11-10] MEDS ORDERED: LEVOFLOXACIN 250 MG TAB PO SCH (21:00)
[2016-11-11 06:17] LABS: Glucose,Whole Blood 129 mg/dL (75-99)
[2016-11-11 06:25] LABS: Basophils % (A) 0 %; CH 32.4; CHCM 32.5; Eosinophils % (A) 0 %; HCT 34.3 % (34.0-46.0); HDW 2.67; HGB 11.1 gm/dL (11.4-16.0); Luc % (Auto) 1; Lymphocytes # (A) 0.3 k/uL (1.0-4.8); Lymphocytes % (A) 3 %; MCH 32.3 pg (25.0-35.0); MCHC 32.3 g/dL (31.0-37.0); MCV 100.2 fL (80.0-100.0); Macrocytosis Slight; Mean Platelet Volume 6.8; Monocytes # (A) 0.6 k/uL (0-1.0); Monocytes % (A) 6 %; Neutrophils # (A) 9.8 k/uL (1.3-7.7); Neutrophils % (A) 91 %; RBC 3.43 m/uL (3.80-5.40); RDW 14.3 % (11.5-15.5); WBC 10.8 k/uL (3.8-10.6); WBC (Perox) 11.72
[2016-11-11 06:48] LABS: Magnesium 2.4 mg/dL (1.6-2.3); Phosphorous 4.4 mg/dL (2.5-4.5); Potassium 3.9 mmol/L (3.5-5.1)
[2016-11-11] MEDS: INSULIN LISPRO (humaLOG) 300 UNIT/3 ML VIAL SQ SCH ×2 (07:02→13:12)
[2016-11-11] MEDS: SODIUM CHLORIDE 0.9% 1,000 ML IV SCH (07:03)
[2016-11-11] MEDS ORDERED: PANTOPRAZOLE 40 MG TABLET PO SCH (07:30)
[2016-11-11] MEDS: ASPIRIN 81 MG CHEW PO SCH (08:05)
[2016-11-11] MEDS: MULTIVITAMINS, THERA 1 EACH TAB PO SCH (08:05)
[2016-11-11] MEDS: VIT A,C & E-LUTEIN-MINERALS 1 EACH TAB PO SCH (08:05)
[2016-11-11] MEDS: methylPREDNISolone SOD SUCCI 40 MG/ML 1 ML VIAL IV SCH (08:05)
[2016-11-11] MEDS: CHOLECALCIFEROL 1,000 UNIT TAB PO SCH (08:06)
[2016-11-11] MEDS: CHLORPHEN-HYDROcod 8-10mg/5ml 5 ML ORAL.SYRG PO SCH (08:08)
[2016-11-11] MEDS ORDERED: OSELTAMIVIR 60 MG/10 ML ORAL SYRINGE PO SCH (09:00)
[2016-11-11] MEDS: IPRATROPIUM-ALBUTEROL 3 ML NEB INHALATION SCH ×2 (09:08→13:02)
[2016-11-11] MEDS: BUDESONIDE 1 MG/2 ML NEBU INHALATION SCH (09:22)
[2016-11-11] MEDS: FORMOTEROL FUMARATE 20 MCG/2 ML NEBU INHALATION SCH (09:22)
[2016-11-11 09:48] VITALS: TEMP 97.7
--- NOTE | 2016-11-11 10:54 | PN ---
The patient is seen for followup for acute kidney injury which was mainly associated with hypoperfusion. Patient had complete heart block, and is status post pacemaker. She was also mildly hyperkalemic which has improved. Serum creatinine was as high as 1.79 mg/dL, it is now down to 1.5. She was at 1.27 previously. In September 2015 we have a serum creatinine of 0.96. On examination today, patient is comfortable. She is awake, alert, not in any acute distress. Blood pressure is 131/59, heart rate 56 per minute. She is afebrile. EXAMINATION OF THE HEART: S1 and S2. EXAMINATION OF THE LUNGS: Bilateral breath sounds are heard. ABDOMEN: Soft, nontender. Examination of lower extremities shows no evidence of edema. Labs show sodium of 133, potassium 3.9, BUN 46, serum creatinine 1.5. Hemoglobin 11.1 g/dL. ASSESSMENT: 1. Acute kidney injury associated with hypoperfusion, currently improving. Baseline creatinine about 0.9 in 2014 and 1.2 on 11/07/2016. Currently patient is maintained on IV fluids, which we can continue. She is also advised to try and increase her oral intake. UA shows trace protein and trace blood and ultrasound has been unremarkable. 2. Complete heart block, status post pacemaker placement. 3. Hyperkalemia, currently resolved. PLAN: Encourage increase oral intake. Repeat labs and check ultrasound of the kidneys as it has not been done.
[2016-11-11 11:43] LABS: Glucose,Whole Blood 125 mg/dL (75-99)
[2016-11-11 12:18] VITALS: BP 176/56
--- NOTE | 2016-11-11 13:00 | US ---
EXAMINATION TYPE: US kidneys/renal and bladder DATE OF EXAM: 11/11/2016 12:27 PM COMPARISON: US abd limited 04/24/2015 CLINICAL HISTORY: renal failure. EXAM MEASUREMENTS: Right Kidney: 9.4 x 4.3 x 4.2 cm Left Kidney: 9.2 x 5.4 x 5.7 cm There is a 1.8 cm hypoechoic nodule involving the lower pole the right kidney. There is no evidence f or hydronephrosis bilaterally.. No nephrolithiasis is seen. The urinary bladder is anechoic. Bilat eral ureteral jets are seen. IMPRESSION: 1.8 cm isoechoic mass right kidney. Solid nodule or malignancy not excluded recommend CT scan.
[2016-11-11 13:06] VITALS: PULSE 62
--- NOTE | 2016-11-11 13:50 | P.PN ---
Subjective Principal diagnosis: Status post permanent pacemaker implantation This is a pleasant 86-year-old female who is status post permanent pacemaker implantation on Monday. Monday evening patient had moved her arms a significantly, and had significant bleeding at the site of the pacemaker implantation, for this reason she [place] where she had the dressing removed to see if there is any wound dehiscence. Jeremiah were then also applied. Outer Dressing was removed this morning, no significant drainage or oozing noted. Patient will be discharged home today. She will follow-up with Dr. Layne in the office as well as the device clinic in one week. Dr. Waters did discuss activity restrictions with her and her family in detail. Objective - Vital Signs Vital signs: Vital Signs Temp 97.7 F 11/11/16 08:00 Pulse 62 11/11/16 13:20 Resp 18 11/11/16 12:00 BP 176/56 11/11/16 12:00 Pulse Ox 97 11/11/16 12:00 Intake & Output 11/10/16 11/11/16 11/11/16 18:59 06:59 18:59 Intake Total 100 250 Balance 100 250 Weight 72.3 kg Intake: IV 50 Sodium Chloride 0.9% 1, 50 000 ml @ 50 mls/hr IV . Q20H [facility] Rx#:[id number] Intake, IV Titration 100 Amount ceFAZolin 2 gm In Sodium 100 Chloride 0.9% 100 ml @ 100 mls/hr IVPB Q6H [facility] Rx#:[id number] Oral 100 100 Other: Voiding Method Bedpan Diaper # Voids 2 - Exam PHYSICAL EXAMINATION: HEENT: Head is atraumatic, normocephalic. Pupils equal, round. Neck is supple. There is no elevated jugular venous pressure. HEART EXAMINATION: S1 and S2 irregular irregular CHEST EXAMINATION: Lungs are clear to auscultation and precussion. No chest wall tenderness is noted on palpation or with deep breathing. Site of pacemaker implantation, dressing is dry and intact. ABDOMEN: Soft, nontender. Bowel sounds are heard. No organomegaly noted. EXTREMITIES: 2+ peripheral pulses with no evidence of peripheral edema and no calf tenderness noted. NEUROLOGIC patient is awake, alert and oriented -3. . - Labs CBC & Chem 7: 11/11/16 06:00 11/11/16 05:56 Labs: Abnormal Lab Results - Last 24 Hours (Table) 11/10/16 11/10/16 11/11/16 Range/Units 17:34 20:39 05:56 WBC (3.8-10.6) k/uL RBC (3.80-5.40) m/uL Hgb (11.4-16.0) gm/dL MCV (80.0-100.0) fL Neutrophils # (1.3-7.7) k/uL Lymphocytes # (1.0-4.8) k/uL Sodium 133 L (137-145) mmol/L Carbon Dioxide 17 L (22-30) mmol/L BUN 46 H (7-17) mg/dL Creatinine 1.50 H (0.52-1.04) mg/dL Glucose 120 H (74-99) mg/dL POC Glucose (mg/dL) 184 H 156 H (75-99) mg/dL Calcium 8.0 L (8.4-10.2) mg/dL Magnesium 2.4 H (1.6-2.3) mg/dL 11/11/16 11/11/16 11/11/16 Range/Units 06:00 06:16 11:41 WBC 10.8 H (3.8-10.6) k/uL RBC 3.43 L (3.80-5.40) m/uL Hgb 11.1 L (11.4-16.0) gm/dL MCV 100.2 H (80.0-100.0) fL Neutrophils # 9.8 H (1.3-7.7) k/uL Lymphocytes # 0.3 L (1.0-4.8) k/uL Sodium (137-145) mmol/L Carbon Dioxide (22-30) mmol/L BUN (7-17) mg/dL Creatinine (0.52-1.04) mg/dL Glucose (74-99) mg/dL POC Glucose (mg/dL) 129 H 125 H (75-99) mg/dL Calcium (8.4-10.2) mg/dL Magnesium (1.6-2.3) mg/dL Microbiology - Last 24 Hours (Table) 11/08/16 22:30 Blood Culture - Preliminary Blood No Growth after 48 hours Assessment and Plan (1) COPD (chronic obstructive pulmonary disease) Status: Acute (2) S/P cardiac pacemaker procedure Status: Acute (3) Nicotine dependence Status: Acute (4) HTN (hypertension) Status: Acute (5) Obesity Status: Acute (6) Hx of breast cancer Status: Acute (7) Renal failure Status: Acute Plan: From cardiology's perspective, patient may be able to be discharged home today. We will make her a follow-up appointment in the office with Dr. Layne and with the device clinic. DNP note has been reviewed, I agree with a documented findings and plan of care. Patient was seen and examined.
--- NOTE | 2016-11-11 17:05 | P.PN ---
Subjective This is a very pleasant 86-year-old female patient who follows with Dr. Kent as her primary care physician. She has a history of chronic and ongoing nicotine addiction, chronic obstructive pulmonary disease only treated with Ventolin HFA as needed, breast cancer with previous left breast mastectomy, peptic ulcer disease, dementia. She presented here to the emergency room on with complaints of increasing shortness of breath, cough and congestion. She had been getting short of breath over the past several days. Once here she was noted to have complete heart block with intermittent junctional rhythms with a heart rate in the 30s and 40s. She had maintained normal blood pressures throughout. Somewhat hypertensive. She was seen and evaluated by the camera storage clerk who initiated a dopamine drip for the bradycardia without significant improvement. She is seen today in consultation on the intensive care unit. She is awake and alert in no acute distress. She has been having a loose nonproductive cough. She denies any chest pain, dizziness or lightheadedness. She has remained hemodynamically stable. Her chest x-ray does reveal some evidence of fluid volume overload with some congestive heart failure. An echocardiogram reveals preserved left ventricular systolic function with estimated ejection fraction 50-55%. She does have severe right ventricular enlargement. There is no significant pulmonary hypertension. The patient is seen again today in follow-up 11/09/2016. She remains here in the intensive care unit. She remains in complete heart block and the plan is for permanent pacemaker implantation today. He remains hemodynamically stable. She is awake and alert in no acute distress. She denies any worsening shortness of breath, cough or congestion. She is maintaining good O2 saturations in the mid 90s on 3 L/m per nasal cannula. Her chest x-ray does reveal continued evidence of interstitial edema. She denies any chest pain, dizziness or lightheadedness. She remains hyponatremic with a sodium of 125. Still having issues with hyperkalemia and up current potassium 5.8. Creatinine remains elevated as well at 1.79. The patient is seen again today in follow-up on 11/11/2016. He is seen on the selective care unit. She is awake and alert in no acute distress. He is status post permanent pacemaker implantation. She denies any chest discomfort, palpitations lightheadedness or dizziness. No shortness of breath, cough or congestion. She is maintaining good O2 saturations in the upper 90s on room air. Stable. She was having issues with acute renal failure. An ultrasound of the kidneys today revealed a 1.8 cm isoechoic mass on the right kidney. Solid nodule versus malignancy in the differential. Objective - Vital Signs Vital signs: Vital Signs Temp 97.7 F 11/11/16 08:00 Pulse 62 11/11/16 13:20 Resp 18 11/11/16 12:00 BP 176/56 11/11/16 12:00 Pulse Ox 97 11/11/16 12:00 Intake & Output 11/10/16 11/11/16 11/11/16 18:59 06:59 18:59 Intake Total 100 250 200 Output Total 0 Balance 100 250 200 Weight 72.3 kg Intake: IV 50 Sodium Chloride 0.9% 1, 50 000 ml @ 50 mls/hr IV . Q20H [facility] Rx#:[id number] Intake, IV Titration 100 Amount ceFAZolin 2 gm In Sodium 100 Chloride 0.9% 100 ml @ 100 mls/hr IVPB Q6H [facility] Rx#:[id number] Oral 100 100 200 Output: Urine 0 Other: Voiding Method Bedpan Diaper # Voids 2 - Exam GENERAL EXAM: Alert, comfortable in no apparent distress. HEAD: Normocephalic. EYES: Normal reaction of pupils, equal size. NOSE: Clear with pink turbinates. THROAT: No erythema or exudates. NECK: No masses, no JVD. CHEST: No chest wall deformity. Left subclavian dressing dry and intact. LUNGS: Equal air entry with few scattered rhonchi. Crackles in the posterior bases.. CVS: S1 and S2 normal with no audible murmurs, regular rhythm. Bradycardiac. ABDOMEN: No hepatosplenomegaly, normal bowel sounds, no guarding or rigidity. SPINE: No scoliosis or deformity SKIN: No rashes CENTRAL NERVOUS SYSTEM: No focal deficits, tone is normal in all 4 extremities. Extremities: Left upper extremity in a sling. There is no significant peripheral edema. No clubbing, no cyanosis. Peripheral pulses are intact. - Labs CBC & Chem 7: 11/11/16 06:00 11/11/16 05:56 Labs: Abnormal Lab Results - Last 24 Hours (Table) 11/10/16 11/10/16 11/11/16 Range/Units 17:34 20:39 05:56 WBC (3.8-10.6) k/uL RBC (3.80-5.40) m/uL Hgb (11.4-16.0) gm/dL MCV (80.0-100.0) fL Neutrophils # (1.3-7.7) k/uL Lymphocytes # (1.0-4.8) k/uL Sodium 133 L (137-145) mmol/L Carbon Dioxide 17 L (22-30) mmol/L BUN 46 H (7-17) mg/dL Creatinine 1.50 H (0.52-1.04) mg/dL Glucose 120 H (74-99) mg/dL POC Glucose (mg/dL) 184 H 156 H (75-99) mg/dL Calcium 8.0 L (8.4-10.2) mg/dL Magnesium 2.4 H (1.6-2.3) mg/dL 11/11/16 11/11/16 11/11/16 Range/Units 06:00 06:16 11:41 WBC 10.8 H (3.8-10.6) k/uL RBC 3.43 L (3.80-5.40) m/uL Hgb 11.1 L (11.4-16.0) gm/dL MCV 100.2 H (80.0-100.0) fL Neutrophils # 9.8 H (1.3-7.7) k/uL Lymphocytes # 0.3 L (1.0-4.8) k/uL Sodium (137-145) mmol/L Carbon Dioxide (22-30) mmol/L BUN (7-17) mg/dL Creatinine (0.52-1.04) mg/dL Glucose (74-99) mg/dL POC Glucose (mg/dL) 129 H 125 H (75-99) mg/dL Calcium (8.4-10.2) mg/dL Magnesium (1.6-2.3) mg/dL Microbiology - Last 24 Hours (Table) 11/08/16 22:30 Blood Culture - Preliminary Blood No Growth after 48 hours Assessment and Plan Plan: Impression: #1 Dyspnea, multifactorial in a patient with suspected significant chronic obstructive pulmonary disease with ongoing chronic nicotine addiction, complete heart block with bradycardia and some component of diastolic congestive heart failure with interstitial edema on chest x-ray. #2 Acute exacerbation of chronic obstructive pulmonary disease. #3 Complete heart block possibly secondary to hyperkalemia. Status post permanent pacemaker implantation. Hyperkalemia corrected. #4 Severe right ventricular enlargement with some component of diastolic congestive heart failure. #5 Chronic and ongoing nicotine addiction. #6 Hypertension. #7 Obesity. #8 History of breast cancer status post left mastectomy. #9 Acute renal failure current creatinine 1.50. #10 Hyponatremia improved current sodium 133. Plan: The patient was seen and evaluated by Dr. Samaniego. He is stable from the pulmonary standpoint and could be discharged home once cleared by cardiology. Continue her current pulmonary medications. She'll follow-up in our office in 1 -2 weeks' time. She is encouraged to call sooner with any pulmonary complaints or other questions or concerns.
--- NOTE | 2016-11-12 19:14 | DS ---
DATE OF ADMISSION: 11/07/2016 DATE OF DISCHARGE: 11/11/2016 FINAL DIAGNOSES: 1. Shortness of breath, possibly multifactorial, chronic obstructive pulmonary disease, acute exacerbation, with acute purulent tracheobronchitis, as well as congestive heart failure acute exacerbation, with acute on chronic diastolic dysfunction. 2. Complete heart block, status post pacemaker implantation. 3. Change in mental status, metabolic encephalopathy, multifactorial. 4. Influenza ruled out. 5. Chronic hypoxic respiratory failure, on home oxygen. 6. History of bradycardia with complete heart block, possibly secondary to hyperkalemia. 7. Hyperkalemia secondary to acute on chronic renal failure. 8. Acute renal failure, possibly acute tubular necrosis multifactorial. 9. Increased random blood sugar, possibly impaired with fasting glucose. 10. Hyponatremia. 11. Mild hypoalbuminemia with mild to moderate protein calorie malnutrition. 12. History of breast cancer. 13. Peptic ulcer disease. 14. Continued ongoing nicotine dependence. 15. FULL CODE. DISCHARGE DISPOSITION: Patient will be discharged in stable condition with guarded prognosis. HISTORY OF PRESENT ILLNESS: This 86 -year-old woman with past medical history of multiple medical problems was admitted with shortness of breath and complete heart block. The patient was treated symptomatically and improved significantly. Dr. Samaniego and cardiology saw the patient. Pacemaker was implanted. The patient improved significantly. On exam, vital signs stable. CARDIOVASCULAR SYSTEM: S1, S2 muffled. ABDOMEN: Soft. Nervous system: No focal deficits. DISCHARGE ADVICE AND MEDICATIONS: 1. Diet is cardiac. 2. Activity limited until follow up. 3. Follow-up with Dr. Kent in two to three days. 4. Follow with Dr. Adams and Dr. Layne as advised. 5. Medications are: 6. Ventolin HFA 1 puff q.i.d. p.r.n. 7. Ecotrin 81 mg p.o. daily. 8. Vitamin D3 1000 units daily. 9. Albuterol Atrovent updrafts q.i.d. and p.r.n. 10. Levaquin 250 mg p.o. q.h.s. for 5 days. 11. Multivitamins 1 p.o. daily. 12. [place]-3 fatty acid 1 p.o. daily. 13. Vitamin lutein 1 p.o. daily. 14. Prednisone 40 mg daily for 3 days, 30 mg for 3 days, 20 for 3 days, 10 for 3 days and then discontinue. MTDD
== END 2016-11-11 17:21 | disposition home health service (06) | DRG 242 ==
LOC: EC 17:22 → 6ICU 22:05 → 6SEL 11-09 18:52
PROVIDERS: ADMIT Hospitalist; ATTEND Hospitalist
PROC: 5A1223Z Performance of Cardiac Pacing, Continuous (ICD-10-PCS; 2016-11-09)
PROC: 0JH604Z Insertion of Pacemaker, Single Chamber into Chest Subcutaneous Tissue and Fascia, Open Approach (ICD-10-PCS; principal; 2016-11-09 11:30)
PROC: 02HK3JZ Insertion of Pacemaker Lead into Right Ventricle, Percutaneous Approach (ICD-10-PCS; principal; 2016-11-09 11:30)
DX: I44.2 Atrioventricular block, complete (principal); G93.41 Metabolic encephalopathy; I50.33 Acute on chronic diastolic (congestive) heart failure; N17.9 Acute kidney failure, unspecified; J96.11 Chronic respiratory failure with hypoxia; E44.0 Moderate protein-calorie malnutrition; J44.0 Chronic obstructive pulmonary disease with (acute) lower respiratory infection; E87.1 Hypo-osmolality and hyponatremia; I13.0 Hypertensive heart and chronic kidney disease with heart failure and stage 1 through stage 4 chronic kidney disease, or unspecified chronic kidney disease; J44.1 Chronic obstructive pulmonary disease with (acute) exacerbation; R00.1 Bradycardia, unspecified; I27.2 Other secondary pulmonary hypertension; E87.5 Hyperkalemia; E11.22 Type 2 diabetes mellitus with diabetic chronic kidney disease; J20.9 Acute bronchitis, unspecified; F03.90 Unspecified dementia, unspecified severity, without behavioral disturbance, psychotic disturbance, mood disturbance, and anxiety; M19.90 Unspecified osteoarthritis, unspecified site; K27.9 Peptic ulcer, site unspecified, unspecified as acute or chronic, without hemorrhage or perforation; F17.200 Nicotine dependence, unspecified, uncomplicated; N18.9 Chronic kidney disease, unspecified; E66.9 Obesity, unspecified; Z99.81 Dependence on supplemental oxygen; Z68.31 Body mass index [BMI] 31.0-31.9, adult; Z71.3 Dietary counseling and surveillance; Z90.12 Acquired absence of left breast and nipple; Z87.11 Personal history of peptic ulcer disease; Z85.3 Personal history of malignant neoplasm of breast; Z79.82 Long term (current) use of aspirin; Z79.899 Other long term (current) drug therapy
CPT/HCPCS: 12001; 33206; 36415; 71010; 71020; 76770; 80048; 80053; 81001; 82140; 83036; 83605; 83735; 83880; 84100; 84484; 85025; 85379; 87040; 87502; 93005; 93306; 94640; 96365; 96372; 96375; 99291